=== PATIENT | female | born 1980 | race African-American/Black ===

== ENCOUNTER 2016-08-09 15:21 | Emergency (ER) | payer OTHER ==
[~2016-08-09] VITALS: Ht 154.9 cm; Wt 86.2 kg
[~2016-08-09 15:21] MED LIST: AMOXICILLIN PO; AUGMENTIN 875 M1 TAB PO; AUGMENTIN 875-1 EACH PO; BACTRIM DS TAB1 EACH PO; BYETTA10 MCG/0.0 SC; CYCLOBENZAPRINE10 M1 PO; DIFLUCAN150 M1 PO; DIFLUCAN150 MG PO; FLOVENT HF0.044 MG/A INH; HAIR, SKIN & N1 EACH PO; IBUPROFEN800 M1 PO; LISINOPRIL10 M1 PO; MAGIC MOUTHWASH PO; MOBIC 15MG15 MG PO; NYSTOP60 GM TOP; ORTHO TRI-CYCL1 EAC1 PO; PANTOPRAZOLE SO20 M1 PO; PERCOCET 5-3251 EACH PO; PRAVASTATIN SOD10 M2 PO; PREDNISONE 20MG20 MG PO; PROVENTIL0.09 MG/A1 PO; PYRIDIUM200 M1 PO; ROBITUSSIN W/CO10 ML PO; TESSALON PERLE100 MG PO; TYLENOL #31 TAB PO; VIBRAMYCIN 100100 MG PO; VICODIN PO; VICODIN5-300 PO; VITAMIN D32000 UNIT PO; ZITHROMAX Z-PA250 M1 PO; ZOFRAN ODT4 M1 PO
[2016-08-09 15:27] VITALS: BP 115/90
--- NOTE | 2016-08-09 15:54 | ED GENERAL ADULT ---
History of Present Illness General Chief Complaint: General Adult Stated Complaint: SORE THROAT VAG DISCHARGE Source: patient Exam Limitations: no limitations Vital Signs & Intake/Output Vital Signs & Intake/Output Vital Signs Date Time Temp Pulse Resp B/P B/P Pulse O2 O2 Flow FiO2 Mean Ox Delivery Rate 08/09 1552 97 Room Air 08/09 1527 97.2 90 16 115/90 97 Room Air Allergies Coded Allergies: NO KNOWN ALLERGIES (02/10/16) Reconcile Medications Cyclobenzaprine HCl 10 MG TABLET 1 TAB PO QPM MUSCLE RELAXER - SHOULDER ( Reported) Exenatide (Byetta) 10 MCG/0.04 ML PEN.INJCTR 10 MCG SC DAILY DIABETES ( Reported) Fluconazole (Diflucan) (Unknown Strength) TABLET (Unknown Dose) UNKNOWN ( Reported) Fluconazole (Diflucan) 150 MG TABLET 1 TAB PO ONCE YEAST INFECTION TAKE ADDITIONAL DOSE OF FLUCONAZLE IF SYMPTOMS PERSIS ON 08/11/16 Insulin Glargine,Hum.rec.anlog (Lantus Solostar) 100 UNIT/ML (3 ML) INSULN.PEN 10 UNIT SC QPM DM (Reported) Lidocaine HCl (Lidocaine HCl Viscous) 2 % SOLUTION 15 ML PO 4 TIMES/DAY PRN SORE THROAT Lisinopril 10 MG TABLET 1 TAB PO DAILY BP (Reported) Multivitamin With Minerals (Hair, Skin & Nails) 1 EACH TABLET 1 TAB PO DAILY SUPPLEMENT (Reported) Norgestimate-Ethinyl Estradiol (Ortho Tri-Cyclen Lo Tablet) 1 EACH TABLET 1 TAB PO DAILY CONTROL (Reported) Nystatin (Nystop) 100,000 UNIT/GRAM POWDER 1 GUILHERME TOP AD ANTIFUNGAL (Reported) Pantoprazole Sodium 20 MG TABLET.DR 1 TAB PO DAILY GI (Reported) Pravastatin Sodium 10 MG TABLET 1 TAB PO QPM CHOLESTEROL (Reported) Triage Note: PT STATES HER THROAT STARTED HURTING HER FOR THE PAST FEW DAYS. PT ALSO C/O VAGINAL DISCHARGE Triage Nurses Notes Reviewed? yes Onset: Gradual Duration: day(s): (3-4) Timing: remote history Injury Environment: home Severity: moderate Severity Numbers: 5 No Modifying Factors: none : No Patient currently breastfeeds: No HPI: Patient is a 36-year-old female, history of diabetes presenting to the emergency Department chief complaint of sore throat that started 2 or 3 days ago, worse with swallowing. Denies taking anything to help with symptoms. No fevers or chills. Mild congestion but no cough. Her daughter is sick with similar symptoms. No recent travel. Also reporting vaginal discharge Schatzman going on for the past 4-5 days. History of yeast infection and this feels the same. Also reports itchiness. Denies any urinary frequency or urgency or dysuria. (SUKHWINDER ELLSWORTH) Past History Travel History Traveled to [place] past 21 day No Medical History Any Pertinent Medical History? see below for history Neurological: NONE EENT: NONE Cardiovascular: hypertension Respiratory: NONE Gastrointestinal: NONE Hepatic: NONE Renal: NONE Musculoskeletal: chronic left shoulder pain Psychiatric: NONE Endocrine: diabetes Blood Disorders: NONE Cancer(s): NONE DIRECTOR OF HOME ECONOMICS/Reproductive: NONE Surgical History Surgical History: N Psychosocial History What is your primary language Belarusian Tobacco Use: Quit >30 days ago ETOH Use: occasional use Illicit Drug Use: denies illicit drug use Family History Hx Contributory? No (SUKHWINDER ELLSWORTH) Review of Systems Review of Systems Constitutional: Reports: no symptoms. Comments Review of systems: See HPI, All other systems negative. Constitutional, no chills fever or weight loss HEENT: No visual changes Cardiovascular: No chest pain ,palpitation Skin, no jaundice no rashes Respiratory: No dyspnea cough sputum or hemoptysis GI: No nausea no vomiting : No dysuria No hematuria Muscle skeletal: no back pain, no neck pain, Neurologic: No numbness no confusion NO REID Psych: No stress anxiety Immunology: No splenectomy or history of AIDS (SUKHWINDER ELLSWORTH) Physical Exam Physical Exam General Appearance: well developed/nourished, no apparent distress, alert, awake , comfortable Comments: Well-developed well-nourished person in no acute distress HEENT: Normal EENT exam, extraocular motion intact, no nystagmus. Pupils equally round and reactive to light and accommodation. Nose is atraumatic. External auditory canal and Tympanic membranes clear. Pharynx is mildly erythematous, no exudate, clearing secretions without difficulty. No swelling or edema. Neck: Supple, no lymphadenopathy, normal range of motion without pain or tenderness Back: Nontender, no CVA tenderness. Cardiovascular: Regular rate and rhythms no murmurs rubs or gallops, normal JVP Respiratory: Chest nontender. No respiratory distress.breath sounds clear to auscultation bilaterally Abdomen: Soft, nontender nondistended, no appreciable organomegaly. Normal bowel sounds. No ascites : . White discharge noted in the vaginal canal, no lesions identified in the vaginal canal or cervix. No cervical motion tenderness. Extremity: No edema Neuro: Alert oriented x3 Skin: No appreciable rash on exposed skin, skin is warm and dry. Psych: Mood and affect is normal, memory and judgment is normal. Core Measures ACS in differential dx? No CVA/TIA Diagnosis: No Severe Sepsis Present: No Septic Shock Present: No (SUKHWINDER ELLSWORTH) Progress Differential Diagnoses I considered the following diagnoses in my evaluation of the patient: Urinary tract infection, yeast infection, STD, strep pharyngitis, viral pharyngitis, upper respiratory infection Plan of Care: Orders Procedure Date/time Status CULTURE,URINE 08/09 1600 Active TRICHOMONAS 08/09 1600 Complete POTASSIUM HYDROXIDE (ASHA) 08/09 1600 Complete GENITAL CULTURE 08/09 1600 Active CHLAMYDIA-GC DNA PROBE 08/09 1600 Active URINE 08/09 1600 Complete URINALYSIS 08/09 1600 Complete THROAT CULTURE W/QUICK STREP 08/09 1530 Active Laboratory Tests 08/09/16 1645: Urine Color YEL, Urine Clarity CLEAR, Urine pH 6.0, Ur Specific [place] >= 1.030 , Urine Protein NEG, Urine Ketones NEG, Urine Nitrite NEG, Urine Bilirubin NEG, Urine Urobilinogen 0.2, Ur Leukocyte Esterase NEG, Ur Microscopic SEDIMENT EXAMINED, Urine RBC 1-3, Urine WBC 1-3 H, Ur Epithelial Cells FEW, Urine Bacteria FEW H, Urine Hemoglobin SMALL H, Urine Glucose NEG, Urine Test NEGATIVE Microbiology 08/09 1645 URINE ROUT: Urine Culture - RECD 08/09 160 GENITAL: GC DNA Probe - RECD 08/09 160 GENITAL: Chlamydia DNA Probe (PAULINA) - RECD 08/09 160 GENITAL: ASHA Preparation - COMP YEAST 08/09 160 GENITAL: Trichomonas Preparation - COMP 08/09 160 GENITAL: Genital Culture - RECD Initial ED EKG: none (SUKHWINDER ELLSWORTH) Departure Departure Disposition: HOME OR SELF CARE Condition: Stable Clinical Impression Primary Impression: Yeast infection Secondary Impressions: Pharyngitis Qualifiers: Pharyngitis/tonsillitis etiology: unspecified etiology Qualified Code: J02.9 - Acute pharyngitis, unspecified Referrals: JOVAN ARANDA APRN (PCP/Family) Additional Instructions: Follow-up with your primary care physician calling appointment. Increase fluids. Urine given prescription for 1 additional fluconazole, take in 2 days if symptoms are still occurring. Increased fluid intake. Return for worsening symptoms or concerns. Departure Forms: Customer Survey General Discharge Information Prescriptions: Current Visit Scripts Fluconazole (Diflucan) 1 TAB PO ONCE #1 TAB TAKE ADDITIONAL DOSE OF FLUCONAZLE IF SYMPTOMS PERSIS ON 08/11/16 Lidocaine HCl (Lidocaine HCl Viscous) 15 ML PO 4 TIMES/DAY PRN SORE THROAT #100 ML (SUKHWINDER ELLSWORTH) PA/TEAROOM HOST/HOSTESS Co-Sign Statement Statement: ED Attending supervision documentation- [] I saw and evaluated the patient. I have also reviewed all the pertinent lab results and diagnostic results. I agree with the findings and the plan of care as documented in the PA's/TEAROOM HOST/HOSTESS's documentation. [X] I have reviewed the ED Record and agree with the PA's/TEAROOM HOST/HOSTESS's documentation. [] Additions or exceptions (if any) to the PAs/TEAROOM HOST/HOSTESS's note and plan are summarized below: [] (DUANE LOPES DO) Critical Care Note Critical Care Note Critical Care Time: non-applicable (SUKHWINDER ELLSWORTH)
[2016-08-09] MEDS ORDERED: DIFLUCAN150 M1 (16:15)
[2016-08-09] MEDS ORDERED: LANTUS SOL100 UNIT/1 SC (16:16)
[2016-08-09] MEDS ORDERED: DIFLUCAN150 M1 PO (16:49)
[2016-08-09] MEDS ORDERED: LIDOCAINE HCL V15 ML PO (17:12)
== END 2016-08-09 17:26 ==
LOC: ERH 15:21
DX: B37.3 Candidiasis of vulva and vagina (principal); J02.9 Acute pharyngitis, unspecified; Z87.891 Personal history of nicotine dependence
CPT/HCPCS: 87070; 81001; 81025; 87071; 87086; 87491; 87591

== ENCOUNTER 2017-12-31 09:22 | Emergency (ER) | payer OTHER ==
[~2017-12-31] VITALS: Ht 152.4 cm; Wt 87.5 kg
[~2017-12-31 09:22] MED LIST changes: +ACULAR5 ML OPH; +BROMFED DM COU118 M1 PO; +DIFLUCAN150 M1; +GUAIFEN-CODEIN118 M1 PO; +LANTUS SOL100 UNIT/1 SC; +LIDOCAINE HCL V15 ML PO; +MEDROL4 M2 PO; +NORCO 5-325 TA1 EACH PO
--- NOTE | 2017-12-31 11:57 | ED MVC/FALL/TRAUMA COMPLAINT ---
History of Present Illness General Chief Complaint: Fall Stated Complaint: RT ARM PAIN S/P FALL Source: patient Exam Limitations: no limitations Allergies Coded Allergies: NO KNOWN ALLERGIES (02/10/16) Reconcile Medications Exenatide (Byetta) 10 MCG/0.04 ML PEN.INJCTR 10 MCG SC DAILY DIABETES ( Reported) Ibuprofen 800 MG TABLET 1 TAB PO TID PRN pain Insulin Glargine,Hum.rec.anlog (Lantus Solostar) 100 UNIT/ML (3 ML) INSULN.PEN 10 UNIT SC QPM DM (Reported) Lisinopril 10 MG TABLET 1 TAB PO DAILY BP (Reported) Multivitamin With Minerals (Hair, Skin & Nails) 1 EACH TABLET 1 TAB PO DAILY SUPPLEMENT (Reported) Norgestimate-Ethinyl Estradiol (Ortho Tri-Cyclen Lo Tablet) 1 EACH TABLET 1 TAB PO DAILY CONTROL (Reported) Pantoprazole Sodium 20 MG TABLET.DR 1 TAB PO DAILY GI (Reported) Pravastatin Sodium 10 MG TABLET 1 TAB PO QPM CHOLESTEROL (Reported) Tylenol With Codeine (Tylenol With Codeine #3 Tablet) 300 MG-30 MG TABLET 1 TAB PO BIDP PRN pain Triage Note: C/O PAIN IN R ARM, SHOULDER PAIN SINCE LAST PM, S/P FALL AT HOME ON STEPS, HAS LIMITIED RANGE OF MOTION. PAIN UNRELIEVED WITH TYELNOL Triage Nurses Notes Reviewed? yes Onset: Abrupt Duration: day(s): Timing: recent history Severity: moderate Injuries/Fall Location: upper extremity, lower extremity Method of Injury: fall Loss of Consciousness: no loss of consciousness : No Patient currently breastfeeds: No HPI: 37-year-old female presents to emergency department complaining of pain in right arm after fall last night while walking up the stairs. Patient states she slipped and fell onto her right side reports pain primarily in right elbow however extending toward right shoulder and right wrist. She also reports pain in right hip however reports that this is more mild. Patient states the pain limits her range of motion of right arm. The patient did not hit her head or lose consciousness. No numbness or tingling. (Shruthi MONTANA,Tsering Bradford) Vital Signs & Intake/Output Vital Signs & Intake/Output Vital Signs Date Time Temp Pulse Resp B/P B/P Pulse O2 O2 Flow FiO2 Mean Ox Delivery Rate 12/31 1743 98.1 108 18 115/68 96 Room Air 12/31 1452 98.2 88 18 139/74 98 12/31 1300 98.0 93 18 138/87 96 12/31 0939 98.3 96 18 120/83 99 Room Air (Suzette ROOT,Roel Cartagena) Past History Travel History Traveled to [place] past 21 day No Medical History Any Pertinent Medical History? see below for history Neurological: NONE EENT: NONE Cardiovascular: hypertension, hyperlipidemia Respiratory: NONE Gastrointestinal: NONE Hepatic: NONE Renal: NONE Musculoskeletal: chronic left shoulder pain Psychiatric: NONE Endocrine: diabetes Blood Disorders: NONE Cancer(s): NONE SECURITY CONTROL ASSESSOR/Reproductive: NONE Surgical History Surgical History: N Psychosocial History What is your primary language Macedonian Tobacco Use: Current Daily Use Daily Tobacco Use Amount/Type: => 5 Cigarettes daily ETOH Use: occasional use Family History Hx Contributory? No (Tsering Atkins) Review of Systems Review of Systems Constitutional: Reports: no symptoms. Eyes: Reports: no symptoms. Ears, Nose, Throat, Mouth: Reports: no symptoms. Respiratory: Reports: no symptoms. Cardiovascular: Reports: no symptoms. Gastrointestinal/Abdominal: Reports: no symptoms. Genitourinary: Reports: no symptoms. Musculoskeletal: Reports: see HPI. Skin: Reports: no symptoms. Neurological/Psychological: Reports: no symptoms. All Other Systems: Reviewed and Negative (Tsering Atkins) Physical Exam Physical Exam General Appearance: well developed/nourished, no apparent distress, alert, awake Head: atraumatic, normal appearance Eyes: Bilateral: normal appearance. Ears, Nose, Throat, Mouth: hearing grossly normal Neck: normal inspection, supple, full range of motion Respiratory: no respiratory distress Cardiovascular: normal peripheral pulses Peripheral Pulses: 2+ radial (R) Back: normal inspection, normal range of motion Extremities: right shoulder tenderness without deformity, right elbow tenderness with mild swelling and limited ROM, right wrist tenderness without deformity, ROM intact, right hip is nontender Neurologic/Psych: awake, alert, oriented x 3 Skin: intact, normal color, warm/dry Core Measures ACS in differential dx? No CVA/TIA Diagnosis No Sepsis Present: No Sepsis Focused Exam Completed? No (Tsering Atkins) Progress Differential Diagnosis: ext injury, pelvis injury, ectopic , IUP, threatened Diagnostic Imaging: Viewed by Me: Radiology Read, Ultrasound. Discussed w/RAD: Radiology Read, Ultrasound. Radiology Impression: PATIENT: BRIGHT MACHADO PRESENT AGE: 37 PATIENT ACCOUNT NO: [id number] : 81 LOCATION: [facility] ORDERING PHYSICIAN: Tsering MONTANA SERVICE DATE: 12/31/17 EXAM TYPE: US - US TRANSVAG EXAMINATION: ULTRASOUND PELVIC, COMPLETE CLINICAL INFORMATION: Positive beta hCG. Vaginal bleeding. COMPARISON: None. TECHNIQUE: Transvaginal: Used to better visualize pelvic structures Transabdominal: Not adequate for visualization. Spectral Doppler and color Doppler exam was utilized. (Spectral Doppler was used to assess cardiac heart rate.) LMP: Uncertain FINDINGS: UTERUS: There is an intrauterine gestation sac with a single pole. The gestational sac has an oblong shape. [place]- rump length 1.7 cm. There is no motion. There is no heart rate. Findings consistent with a missed AB. There is no yolk sac. ADNEXA: The left ovary is not visualized. Ovarian vascularity:Doppler demonstrates both arterial and venous vascular flow in the right ovary. No evidence of ovarian torsion. Right Ovary: Dominant follicle in the right ovary measuring 1.7 cm. The right ovary measures 2.8 x 1.8 x 2.3 cm. Cul-de-sac: No Fluid IMPRESSION: There is a single intrauterine gestation present with crown-rump length 1.7 cm. There is no motion or cardiac heart beat. This is consistent with a missed AB. This critical result was discussed with Tsering Hawkins on 12/31/2017, 3:40 PM and it was ascertained that the content and urgency of the report was understood at the time of direct communication. DICTATED BY: Diomedes Correia MD DATE/TIME DICTATED:12/31/171532 SILVER SERVICE WAITER:RENE DATE/TIME TRANSCRIBED:12/31/171532 CONFIDENTIAL, DO NOT COPY WITHOUT APPROPRIATE AUTHORIZATION. <Electronically signed in Other Vendor System> SIGNED BY: Diomedes Correia MD 12/31/17 154, PATIENT: BRIHGT MACHADO PRESENT AGE: 37 PATIENT ACCOUNT NO: [id number] : 81 LOCATION: [facility] ORDERING PHYSICIAN: Tsering MONTANA SERVICE DATE: 12/31/17-0815 EXAM TYPE: RAD - XRY-FOREARM, RIGHT; XRY-HUMERUS, RIGHT EXAMINATION: 1. RIGHT HUMERUS. 2. RIGHT FOREARM. CLINICAL INFORMATION: Pain after a fall. COMPARISON: None TECHNIQUE: 1. Right humerus. 2 views 2. Right forearm. 2 views FINDINGS: 1. Right humerus. There is no fracture of the humerus. 2. Right forearm. There is fluid in the joint with displacement of the anterior and posterior fat pads of the distal humerus. Considering history of trauma is consistent with a hemarthrosis. There is no displaced fracture and no dislocation. An occult fracture of the radial head cannot be excluded in the presence of a hemarthrosis. IMPRESSION: 1. Right humerus. Normal. 2. Right forearm. Hemarthrosis at the elbow. There is no displaced fracture of the radius or ulna but an occult fracture of the radial head cannot be excluded in the presence of a hemarthrosis. If the pain persists a follow-up MRI or CT of the elbow would be suggested . DICTATED BY: Diomedes Correia MD DATE/TIME DICTATED:12/31/171655 SILVER SERVICE WAITER:RENE DATE/TIME TRANSCRIBED:12/31/171655 CONFIDENTIAL, DO NOT COPY WITHOUT APPROPRIATE AUTHORIZATION. <Electronically signed in Other Vendor System> SIGNED BY: Diomedes Correia MD 12/31/17 1702 (Tsering Atkins) Plan of Care: Orders Procedure Date/time Status Regular Diet 12/31 D Active Durable Medical Equipment 12/31 1722 Active HUMAN BETA HCG TITRE 12/31 1343 Complete COMPREHENSIVE METABOLIC PANEL 12/31 1343 Complete CBC WITHOUT DIFFERENTIAL 12/31 1343 Complete TYPE & SCREEN (NOT X-MATCH) 12/31 1343 Complete HUMAN BETA HCG SCREEN 12/31 1206 Complete Laboratory Tests 12/31/17 1512: Anion Gap 9, Estimated GFR > 60, BUN/Creatinine Ratio 20.0, Glucose 99, Calcium 10.0, Total Bilirubin 0.3, AST 17, ALT 22, Alkaline Phosphatase 50, Total Protein 6.9, Albumin 4.1, Globulin 2.8, Albumin/Globulin Ratio 1.5, Beta HCG, Quant 1128.5, CBC w Diff NO MAN DIFF REQ, RBC 4.10 L, MCV 84.9, MCH 28.4, MCHC 33.4, RDW 13.3, MPV 7.8, Gran % 64.5, Lymphocytes % 27.8, Monocytes % 6.0, Eosinophils % 1.3, Basophils % 0.4, Absolute Granulocytes 7.2 H, Absolute Lymphocytes 3.1, Absolute Monocytes 0.7 H, Absolute Eosinophils 0.1, Absolute Basophils 0 12/31/17 1223: Total Beta HCG POSITIVE Patient's test found to be positive. The patient had previously denied stating that she was currently on her period. Reports vaginal spotting and bleeding which began yesterday. 2:49 PM - spoke with Dr. Calderon, the patient's VIDEO NETWORK ENGINEER. She agrees that if x- rays are warranted given the patient's Findings and trauma that they should be obtained today despite the patient's as long as the patient is aware of risks of radiation. 3:38 PM - spoke with radiology 1.7cm intra uterine , nonviable - missed Spoke with Dr. Calderon regarding the above abnormal findings. She will follow up with the patient in her office this week. X-ray imaging shows elbow arthrosis, most consistent with occult fracture, patient placed in posterior arm splint and will require dental follow-up. Patient given Tylenol with codeine as this medication is generally safe during although her has been found to be in viable. Dr. Bradford agrees with this plan. Radial pulse intact. (Shruthi MON[place],Tsering Bradford) (Suzette ROOT,Roel Cartagena) Departure Departure Disposition: HOME OR SELF CARE Condition: Stable Clinical Impression Primary Impression: Missed Secondary Impressions: Elbow fracture Qualifiers: Encounter type: initial encounter Fracture type: closed Laterality: right Qualified Code: S42.401A - Unspecified fracture of lower end of right humerus, initial encounter for closed fracture Fall Qualifiers: Encounter type: initial encounter Qualified Code: W19.XXXA - Unspecified fall, initial encounter Hemarthrosis involving elbow joint Qualifiers: Laterality: right Qualified Code: M25.021 - Hemarthrosis, right elbow Referrals: Vanesa Edwards APRN (PCP/Family) Additional Instructions: Follow up with your VIDEO NETWORK ENGINEER this week, call to schedule your appointment tomorrow. Your hormone level was 1128 today. You were also given a referral for an orthopedic doctor to follow-up with regarding your elbow. Keep the splint on until you follow up with orthopedic doctor. Return with worsening symptoms or concerns. Please note that there might be incidental findings in your evaluation that are unrelated to the current emergency department visit. Please notify your primary care doctor about this emergency department visit in order to obtain and review all of the testing performed so that these incidental findings can be monitored as needed. If you had an x-ray performed, please understand that some fractures may not be seen on the initial set of x-rays. If your symptoms persist you might need a repeat set of x-rays to check for such a fracture. If you had a laceration evaluated, please understand that foreign bodies such as glass or wood may not be visible to the naked eye or on plain x-rays. If the wound becomes red, swollen, increasingly more painful or if there is any drainage from the wound, please have it reevaluated by a physician for the possibility of a retained foreign body. If you're unable to follow up as outlined in the discharge instructions please return to the emergency department. Thank you for choosing the [facility] Emergency Department for your care. It was a pleasure to serve you today. Departure Forms: Customer Survey General Discharge Information Prescriptions: Current Visit Scripts Tylenol With Codeine (Tylenol With Codeine #3 Tablet) 1 TAB PO BIDP PRN pain #10 TAB Ibuprofen 1 TAB PO TID PRN pain #20 TAB (Shruthi MON[place],Tsering Bradford) PA/FLIGHT INSPECTOR Co-Sign Statement Statement: ED Attending supervision documentation- [] I saw and evaluated the patient. I have also reviewed all the pertinent lab results and diagnostic results. I agree with the findings and the plan of care as documented in the PA's/FLIGHT INSPECTOR's documentation. [x] I have reviewed the ED Record and agree with the PA's/FLIGHT INSPECTOR's documentation. Diagnosis of new in a patient who presents for evaluation of left upper extremity pain status post fall. Patient stated initially that she was having her menstrual period currently. Plan ultrasound to check for IUP versus ectopic . Patient will be counseled on her relative to x- rays of the arm to rule out fracture. [] Additions or exceptions (if any) to the PAs/FLIGHT INSPECTOR's note and plan are summarized below: [] (Suzette ROOT,Roel Cartagena) Procedures Splinting Location: right arm Manual Alignment Performed: No Hand-Made Type: orthoglass Splint: posterior arm Splint Applied By: splint applied by me Pre-Proc Neuro Vasc Exam: normal Post-Proc Neuro Vasc Exam: normal Progress: PAtient tolerated procedure well. (Shruthi MONTANA,Tsering Bradford)
[2017-12-31 15:25] LABS: ABSOLUTE BASOPHIL COUNT 0 /CUMM (0.0-0.2); ABSOLUTE EOSINOPHIL COUNT 0.1 /CUMM (0.0-0.7); ABSOLUTE GRANULOCYTE CT 7.2 /CUMM (1.4-6.5); ABSOLUTE LYMPH COUNT 3.1 /CUMM (1.2-3.4); ABSOLUTE MONOCYTE COUNT 0.7 /CUMM (0.10-0.60); BASOPHIL % 0.4 % (0.0-2.0); EOSINOPHIL % 1.3 % (0-5); GRANULOCYTE % 64.5 % (42.2-75.2); HEMATOCRIT 34.8 % (37-47); MEAN CORPUSCULAR HGB 28.4 PG (27.0-31.0); MEAN CORPUSCULAR HGB CONC 33.4 G/DL (33.0-37.0); MEAN CORPUSCULAR VOLUME 84.9 FL (81.0-99.0); MEAN PLATELET VOLUME 7.8 FL (7.4-10.4); PLATELET COUNT 431 /CUMM (130-400); RBC DISTRIBUTION WIDTH 13.3 % (11.5-14.5); WHITE BLOOD CELL COUNT 11.2 /CUMM (4.8-10.8)
--- NOTE | 2017-12-31 15:43 | ULTRASOUND REPORT ---
EXAMINATION: ULTRASOUND PELVIC, COMPLETE CLINICAL INFORMATION: Positive beta hCG. Vaginal bleeding. COMPARISON: None. TECHNIQUE: Transvaginal: Used to better visualize pelvic structures Transabdominal: Not adequate for visualization. Spectral Doppler and color Doppler exam was utilized. (Spectral Doppler was used to assess cardiac heart rate.) LMP: Uncertain FINDINGS: UTERUS: There is an intrauterine gestation sac with a single pole. The gestational sac has an oblong shape. [place]-rump length 1.7 cm. There is no motion. There is no heart rate. Findings consistent with a missed AB. There is no yolk sac. ADNEXA: The left ovary is not visualized. Ovarian vascularity:Doppler demonstrates both arterial and venous vascular flow in the right ovary. No evidence of ovarian torsion. Right Ovary: Dominant follicle in the right ovary measuring 1.7 cm. The right ovary measures 2.8 x 1.8 x 2.3 cm. Cul-de-sac: No Fluid IMPRESSION: There is a single intrauterine gestation present with crown-rump length 1.7 cm. There is no motion or cardiac heart beat. This is consistent with a missed AB. This critical result was discussed with Tsering Hawkins on 12/31/2017, 3:40 PM and it was ascertained that the content and urgency of the report was understood at the time of direct communication.
--- NOTE | 2017-12-31 17:02 | RADIOLOGY REPORT ---
EXAMINATION: 1. RIGHT HUMERUS. 2. RIGHT FOREARM. CLINICAL INFORMATION: Pain after a fall. COMPARISON: None TECHNIQUE: 1. Right humerus. 2 views 2. Right forearm. 2 views FINDINGS: 1. Right humerus. There is no fracture of the humerus. 2. Right forearm. There is fluid in the joint with displacement of the anterior and posterior fat pads of the distal humerus. Considering history of trauma is consistent with a hemarthrosis. There is no displaced fracture and no dislocation. An occult fracture of the radial head cannot be excluded in the presence of a hemarthrosis. IMPRESSION: 1. Right humerus. Normal. 2. Right forearm. Hemarthrosis at the elbow. There is no displaced fracture of the radius or ulna but an occult fracture of the radial head cannot be excluded in the presence of a hemarthrosis. If the pain persists a follow-up MRI or CT of the elbow would be suggested .
[2017-12-31] MEDS ORDERED: IBUPROFEN800 M1 PO (17:31)
[2017-12-31] MEDS ORDERED: TYLENOL WITH C1 EACH PO (17:31)
[2017-12-31 17:43] VITALS: BP 115/68
== END 2017-12-31 17:49 ==
LOC: ERH 09:22
PROVIDERS: Physician Assistant
DX: S42.401A Unspecified fracture of lower end of right humerus, initial encounter for closed fracture (principal); O02.1 Missed abortion; M25.021 Hemarthrosis, right elbow; M25.551 Pain in right hip; I10 Essential (primary) hypertension; F17.210 Nicotine dependence, cigarettes, uncomplicated; E11.9 Type 2 diabetes mellitus without complications
CPT/HCPCS: 73060-RT; 73090-RT; 76817; 96372; J1885